=== PATIENT | female | born 1965 | race Caucasian/White ===

== ENCOUNTER 2016-11-30 10:39 | Day surgery (SDC) | payer BC ==
[2016-11-28 15:12] LABS: ASPARTATE AMINO TRANSFERASE 19 U/L (15-37); BLOOD UREA NITROGEN 16 mg/dL (7-18)
[~2016-11-30] VITALS: Ht 167.6 cm; Wt 140.0 kg
[~2016-11-30 10:39] MED LIST: ATEN50TA41 PO; CHOL2000 PO; FAMC125T PO; FLUO20CA19 PO; SCOP1PAT PO; SPIR25TA3 PO; ZOLM5TAB8 PO
[2016-11-30] MEDS ORDERED: LACTATED RINGERS 1,000 ML IV SCH (11:12)
[2016-11-30 11:44] VITALS: BP 156/75
[2016-11-30] MEDS ORDERED: PROPOFOL 10 MG/ML, 20ML ONE (12:48)
== END 2016-11-30 14:35 ==
LOC: OUT 10:39
DX: Z12.11 Encounter for screening for malignant neoplasm of colon (principal); K63.89 Other specified diseases of intestine; Z80.0 Family history of malignant neoplasm of digestive organs; I10 Essential (primary) hypertension; G43.909 Migraine, unspecified, not intractable, without status migrainosus; E66.9 Obesity, unspecified; Z87.39 Personal history of other diseases of the musculoskeletal system and connective tissue
CPT/HCPCS: 36415; 45378; 80053; J2704; J7120

== ENCOUNTER 2020-01-06 23:33 | Emergency (ER) | payer BC ==
[~2020-01-06] VITALS: Ht 167.6 cm; Wt 157.0 kg
[~2020-01-06 23:33] MED LIST changes: -FAMC125T PO; +FAMC125T3 PO; -SCOP1PAT PO; +SCOP1PAT11 PO; -SPIR25TA3 PO; +SPIR25TA5 PO
--- NOTE | 2020-01-06 23:47 | NUR ---
PATIENT STATES SEEING "SQUIGGILY LINES OUT OF RIGHT EYE OVER PAST COUPLE DAYS" AND STATES TODAY SHE CANNOT SEE OUT OF IT NOW. PATIENT DENIES SORIANO, WEARING CONTACTS. PT DOES WEAR GLASSES. PATIENT STATES NOT TAKING MEDS REQULARLY WELL. PATIENT LAUGHING AND TALKING. ERP AT BEDSIDE
--- NOTE | 2020-01-06 23:54 | NUR ---
patient unable to see anything out of right eye during visual acuities.
[2020-01-07] MEDS ORDERED: FLUORESCEIN OPHTHALMIC 1 MG STRIP ONE (00:09)
[2020-01-07] MEDS ORDERED: PROPARACAINE OPHTH 0.5%, 15ML ONE (00:09)
[2020-01-07] MEDS ORDERED: LABETALOL 5MG/ML, 20ML IVPush ONE (00:30)
[2020-01-07] MEDS ORDERED: LABETALOL 5MG/ML, 20ML ONE (01:01)
--- NOTE | 2020-01-07 01:04 | NUR ---
BREAK RN: PT MOVED TO ROOM 2. SALESPERSON TOY TRAINS AND ACCESSORIES ON. NSR NOTED. NO ACUTE DISTRESS NOTED. REPORT GIVEN TO NAEL THOMPSON
--- NOTE | 2020-01-07 01:15 | NUR ---
DISCUSSED LOWER B/P WTIH KUMAR MACIAS PRIOR TO ADMIN OF HTN MED; PER KUMAR MACIAS STILL GIVE MED. PT. MEDICATED PER JUL. ICE CHIPS PROVIDED PER REQUEST. PT. DENIES OTHER NEEDS AT THIS TIME.
[2020-01-07 01:30] VITALS: BP 154/73
== END 2020-01-07 01:49 | disposition home or self-care (01) ==
LOC: ED 01-07 01:19
DX: H43.11 Vitreous hemorrhage, right eye (principal); I10 Essential (primary) hypertension; Z85.3 Personal history of malignant neoplasm of breast
CPT/HCPCS: 96374; 99283